=== PATIENT | female | born 1965 | race Caucasian/White ===

== ENCOUNTER 2021-06-11 15:22 | Inpatient (IN) ==
[2021-06-11] MEDS ORDERED: Albuterol/Ipratropium NEB.SOL (2.5/0.5 MG) 3 ML NEB.SOLN INH ONE (15:26)
[2021-06-11] MEDS ORDERED: Magnesium Sulfate 2 gm BAG 2 GM/50 ML BAG ONE (15:33)
[2021-06-11 15:49] LABS: Hematocrit 45 % (35-47); Hemoglobin 14.6 g/dL (12.0-16.0); Mean Corpuscular HGB Conc 33 g/dL (31-36); Mean Corpuscular Hemoglobin 31 pg (27-31); Mean Corpuscular Volume 95 fL (80-97); Mean Platelet Volume 7.4 fL (7.4-10.4); Platelet Count 397 10^3/uL (150-450); Red Blood Count 4.71 10^6 /uL (3.70-4.87); Red Cell Distribution Width 14 % (10-15); White Blood Count 17.3 10^3/uL (3.5-10.8)
[2021-06-11] MEDS ORDERED: Magnesium Sulfate 2 gm BAG 2 GM/50 ML BAG IVPB ONE (15:49)
[2021-06-11] MEDS ORDERED: Azithromycin 500 mg/250 ml NS 500 MG/250 ML BAG IVPB ONE (15:50)
[2021-06-11] MEDS ORDERED: cefTRIAXone 1 gm/50 mL NS BAG 1 GM/50 ML BAG IV ONE (15:50)
[2021-06-11 15:56] LABS: ABS Basophils 0.1 10^3/ul (0-0.2); ABS Eosinophils 0.2 10^3/ul (0-0.6); ABS Lymphocytes 2.3 10^3/ul (1.0-4.8); ABS Monocytes 2.2 10^3/ul (0-0.8); ABS Neutrophils 12.6 10^3/ul (1.5-7.7); Lymphocyte % 13.2 %
[2021-06-11 15:57] LABS: Albumin 4.6 g/dL (3.2-5.2); Albumin/Globulin Ratio 1.5 (1-3); Calcium 9.8 mg/dL (8.6-10.3); EGFR African American 142.9 (>60); EGFR Non-African American 118.1 (>60); Globulin 3.1 g/dL (2-4); Magnesium 2.3 mg/dL (1.9-2.7); Potassium 4.4 mmol/L (3.5-5.0); Total Bilirubin 0.4 mg/dL (0.2-1.0); Total Protein 7.7 g/dL (6.4-8.9)
[2021-06-11 15:58] LABS: Troponin I 0.01 ng/mL (<0.03)
[2021-06-11 15:59] LABS: PCO2 Arterial 96 mmHg (35-45); PO2 Arterial 289 mmHg (80-100)
[2021-06-11 16:08] LABS: Rapid COVID-19 Molecular Undetected (Undetected)
[2021-06-11] MEDS: Albuterol 2.5mg/3 ml (0.083%) NEB.SOLN INH SCH ×3 (16:33→16:47)
[2021-06-11] MEDS ORDERED: Morphine 4 MG/ML VIAL (1 ml) IV ONE (17:00)
[2021-06-11] MEDS ORDERED: Enoxaparin 40 MG/0.4 ML SYR SUBCUT SCH (18:00)
[2021-06-11] MEDS: methylPREDNISolone SOD 40 mg/ml 1 ml VIAL IV SCH (18:12)
[2021-06-11 18:37] LABS: PO2 Arterial 92 mmHg (80-100)
[2021-06-11 18:39] LABS: PCO2 Arterial 80 mmHg (35-45)
[2021-06-11] MEDS ORDERED: Albuterol/Ipratropium NEB.SOL (2.5/0.5 MG) 3 ML NEB.SOLN INH SCH ×2 (19:00→23:00)
[2021-06-11] MEDS: Pantoprazole VIAL 40 MG VIAL IV SCH (22:18)
[2021-06-12] MEDS: methylPREDNISolone SOD 40 mg/ml 1 ml VIAL IV SCH ×3 (02:43→19:59)
[2021-06-12 05:55] LABS: ABS Lymphocytes 0.5 10^3/ul (1.0-4.8); ABS Monocytes 0.4 10^3/ul (0-0.8); ABS Neutrophils 7.3 10^3/ul (1.5-7.7); Hematocrit 38 % (35-47); Hemoglobin 12.6 g/dL (12.0-16.0); Lymphocyte % 6.5 %; Mean Corpuscular HGB Conc 33 g/dL (31-36); Mean Corpuscular Hemoglobin 31 pg (27-31); Mean Corpuscular Volume 94 fL (80-97); Mean Platelet Volume 7.6 fL (7.4-10.4); Platelet Count 270 10^3/uL (150-450); Red Blood Count 4.05 10^6 /uL (3.70-4.87); Red Cell Distribution Width 14 % (10-15); White Blood Count 8.3 10^3/uL (3.5-10.8)
[2021-06-12 05:57] LABS: PCO2 Arterial 50 mmHg (35-45); PO2 Arterial 88 mmHg (80-100)
[2021-06-12 06:11] LABS: Calcium 9.3 mg/dL (8.6-10.3); EGFR African American 176.4 (>60); EGFR Non-African American 145.7 (>60); Magnesium 2.3 mg/dL (1.9-2.7); Phosphorus 2.8 mg/dL (2.5-5.0); Potassium 3.6 mmol/L (3.5-5.0)
[2021-06-12] MEDS ORDERED: KCL 20 MEQ/100 ML IVPREMIX 20 MEQ/100 ML BAG IV SCH (07:00)
[2021-06-12] MEDS: Albuterol/Ipratropium NEB.SOL (2.5/0.5 MG) 3 ML NEB.SOLN INH SCH ×2 (07:22→14:17)
[2021-06-12] MEDS ORDERED: Potassium Chlor 20 meq TAB.ER PO ONE (08:46)
[2021-06-12] MEDS: Labetalol IV 5 MG/ML 20 ml VIAL IV PUSH PRN ×2 (13:55→20:34)
[2021-06-12] MEDS: Ondansetron 4 mg VIAL 2 MG/ML 2 ml VIAL IV PRN (15:22)
[2021-06-12] MEDS ORDERED: Prochlorperazine 5 mg/ml 2 ml VIAL (10 mg) IV ONE (17:15)
[2021-06-12] MEDS: cefTRIAXone 1 gm/50 mL NS BAG 1 GM/50 ML BAG IVPB SCH (18:15)
[2021-06-12] MEDS: Enoxaparin 30 MG/0.3 ML SYR SUBCUT SCH (18:28)
[2021-06-12] MEDS: IPRATROPIUM INH SCH (18:28)
[2021-06-12] MEDS: Albuterol HFA INHALER 8 gm MDI INH SCH (18:29)
[2021-06-12] MEDS: Pantoprazole VIAL 40 MG VIAL IV SCH (19:59)
[2021-06-13] MEDS ORDERED: Labetalol IV 5 MG/ML 20 ml VIAL IV PUSH ONE (00:44)
[2021-06-13] MEDS: Albuterol HFA INHALER 8 gm MDI INH SCH ×2 (00:47→06:22)
[2021-06-13] MEDS: IPRATROPIUM INH SCH ×2 (00:48→06:22)
[2021-06-13] MEDS: Labetalol IV 5 MG/ML 20 ml VIAL IV PUSH PRN (03:40)
[2021-06-13 07:06] LABS: Hematocrit 35 % (35-47); Hemoglobin 11.8 g/dL (12.0-16.0); Mean Corpuscular HGB Conc 34 g/dL (31-36); Mean Corpuscular Hemoglobin 31 pg (27-31); Mean Corpuscular Volume 92 fL (80-97); Mean Platelet Volume 7.8 fL (7.4-10.4); Platelet Count 281 10^3/uL (150-450); Red Blood Count 3.78 10^6 /uL (3.70-4.87); Red Cell Distribution Width 14 % (10-15); White Blood Count 15.2 10^3/uL (3.5-10.8)
[2021-06-13 07:25] LABS: Calcium 8.8 mg/dL (8.6-10.3); Magnesium 1.9 mg/dL (1.9-2.7); Phosphorus 2.8 mg/dL (2.5-5.0); Potassium 2.9 mmol/L (3.5-5.0)
[2021-06-13] MEDS ORDERED: Magnesium Sulfate 2 gm BAG 2 GM/50 ML BAG IVPB ONE (07:30)
[2021-06-13] MEDS: methylPREDNISolone SOD 40 mg/ml 1 ml VIAL IV SCH ×2 (07:59→20:45)
[2021-06-13] MEDS ORDERED: Albuterol HFA INHALER 8 gm MDI INH ONE (08:11)
[2021-06-13] MEDS ORDERED: Albuterol/Ipratropium NEB.SOL (2.5/0.5 MG) 3 ML NEB.SOLN INH PRN (09:50)
[2021-06-13] MEDS: KCL 20 MEQ/100 ML IVPREMIX 20 MEQ/100 ML BAG IV SCH ×2 (10:43→20:10)
[2021-06-13] MEDS ORDERED: hydrALAZINE 20 mg/ml 1 ML Vial IV IV SLOW PU ONE (13:13)
[2021-06-13] MEDS ORDERED: Ipratropium HFA INHALER(NF) (ALTERNATIVE = NEBS) INH PRN (13:37)
[2021-06-13] MEDS: Potassium Chlor 20 meq TAB.ER PO SCH ×2 (13:56→20:45)
[2021-06-13] MEDS ORDERED: Levalbuterol 1.25MG/0.5ML NEB.SOL INH PRN (14:27)
[2021-06-13] MEDS: Levalbuterol 1.25MG/0.5ML NEB.SOL INH SCH ×2 (15:47→23:08)
[2021-06-13] MEDS: cefTRIAXone 1 gm/50 mL NS BAG 1 GM/50 ML BAG IVPB SCH (16:44)
[2021-06-13] MEDS: Enoxaparin 30 MG/0.3 ML SYR SUBCUT SCH (17:00)
[2021-06-13] MEDS: Pantoprazole VIAL 40 MG VIAL IV SCH (20:45)
[2021-06-14 06:24] LABS: ABS Lymphocytes 0.8 10^3/ul (1.0-4.8); ABS Monocytes 0.8 10^3/ul (0-0.8); ABS Neutrophils 12.1 10^3/ul (1.5-7.7); Hematocrit 42 % (35-47); Hemoglobin 13.9 g/dL (12.0-16.0); Lymphocyte % 5.9 %; Mean Corpuscular HGB Conc 33 g/dL (31-36); Mean Corpuscular Hemoglobin 31 pg (27-31); Mean Corpuscular Volume 93 fL (80-97); Mean Platelet Volume 7.6 fL (7.4-10.4); Platelet Count 332 10^3/uL (150-450); Red Cell Distribution Width 14 % (10-15); White Blood Count 13.7 10^3/uL (3.5-10.8)
[2021-06-14 06:35] LABS: Calcium 9.2 mg/dL (8.6-10.3); EGFR Non-African American 149.6 (>60); Phosphorus 2.5 mg/dL (2.5-5.0); Potassium 3.5 mmol/L (3.5-5.0)
[2021-06-14] MEDS: Levalbuterol 1.25MG/0.5ML NEB.SOL INH SCH ×2 (07:18→15:31)
[2021-06-14] MEDS: Potassium Chlor 20 meq TAB.ER PO SCH ×3 (08:41→21:34)
[2021-06-14] MEDS: cefTRIAXone 1 gm/50 mL NS BAG 1 GM/50 ML BAG IVPB SCH (17:40)
[2021-06-14] MEDS: Enoxaparin 30 MG/0.3 ML SYR SUBCUT SCH (18:26)
[2021-06-14] MEDS: Mometasone/Formoter 200/5 MDI INH SCH (22:24)
[2021-06-15] MEDS: Mometasone/Formoter 200/5 MDI INH SCH ×2 (08:19→20:41)
[2021-06-15] MEDS: SPIRIVA Respimat (tiotropium) 2.5 mcg/inh Inhaler INH SCH (08:19)
[2021-06-15] MEDS: Potassium Chlor 20 meq TAB.ER PO SCH ×3 (10:12→20:34)
[2021-06-15] MEDS: Enoxaparin 30 MG/0.3 ML SYR SUBCUT SCH (16:15)
[2021-06-15] MEDS: cefTRIAXone 1 gm/50 mL NS BAG 1 GM/50 ML BAG IVPB SCH (17:51)
[2021-06-15] MEDS: Ondansetron 4 mg VIAL 2 MG/ML 2 ml VIAL IV PRN (17:58)
[2021-06-16] MEDS: Potassium Chlor 20 meq TAB.ER PO SCH ×3 (07:33→19:58)
[2021-06-16] MEDS: SPIRIVA Respimat (tiotropium) 2.5 mcg/inh Inhaler INH SCH (07:44)
[2021-06-16] MEDS: Mometasone/Formoter 200/5 MDI INH SCH ×2 (07:45→19:40)
[2021-06-16 10:04] LABS: ABS Eosinophils 0.1 10^3/ul (0-0.6); ABS Lymphocytes 1.2 10^3/ul (1.0-4.8); ABS Monocytes 0.7 10^3/ul (0-0.8); ABS Neutrophils 12.6 10^3/ul (1.5-7.7); Eosinophil % 0.6 %; Hematocrit 39 % (35-47); Hemoglobin 13.3 g/dL (12.0-16.0); Lymphocyte % 7.9 %; Mean Corpuscular HGB Conc 34 g/dL (31-36); Mean Corpuscular Hemoglobin 31 pg (27-31); Mean Corpuscular Volume 92 fL (80-97); Mean Platelet Volume 7.6 fL (7.4-10.4); Platelet Count 310 10^3/uL (150-450); Red Blood Count 4.31 10^6 /uL (3.70-4.87); Red Cell Distribution Width 14 % (10-15); White Blood Count 14.6 10^3/uL (3.5-10.8)
[2021-06-16 10:26] LABS: EGFR African American 159.8 (>60); EGFR Non-African American 132.1 (>60); Potassium 3.7 mmol/L (3.5-5.0)
[2021-06-16] MEDS: Enoxaparin 30 MG/0.3 ML SYR SUBCUT SCH (16:51)
[2021-06-17 05:24] LABS: ABS Basophils 0.1 10^3/ul (0-0.2); ABS Eosinophils 0.2 10^3/ul (0-0.6); ABS Lymphocytes 2.2 10^3/ul (1.0-4.8); ABS Monocytes 1.3 10^3/ul (0-0.8); ABS Neutrophils 11.5 10^3/ul (1.5-7.7); Eosinophil % 1.5 %; Hematocrit 42 % (35-47); Hemoglobin 13.8 g/dL (12.0-16.0); Lymphocyte % 14.6 %; Mean Corpuscular HGB Conc 33 g/dL (31-36); Mean Corpuscular Hemoglobin 30 pg (27-31); Mean Corpuscular Volume 92 fL (80-97); Mean Platelet Volume 8.1 fL (7.4-10.4); Platelet Count 357 10^3/uL (150-450); Red Blood Count 4.55 10^6 /uL (3.70-4.87); Red Cell Distribution Width 14 % (10-15); White Blood Count 15.2 10^3/uL (3.5-10.8)
[2021-06-17] MEDS: Mometasone/Formoter 200/5 MDI INH SCH ×3 (07:20→20:54)
[2021-06-17] MEDS: SPIRIVA Respimat (tiotropium) 2.5 mcg/inh Inhaler INH SCH (07:20)
[2021-06-17] MEDS: Potassium Chlor 20 meq TAB.ER PO SCH ×3 (07:50→21:21)
[2021-06-17] MEDS: Enoxaparin 30 MG/0.3 ML SYR SUBCUT SCH (17:45)
[2021-06-18] MEDS: Mometasone/Formoter 200/5 MDI INH SCH ×2 (07:29→19:35)
[2021-06-18] MEDS: SPIRIVA Respimat (tiotropium) 2.5 mcg/inh Inhaler INH SCH (07:37)
[2021-06-18] MEDS: Potassium Chlor 20 meq TAB.ER PO SCH ×3 (07:52→20:28)
[2021-06-18] MEDS: Enoxaparin 30 MG/0.3 ML SYR SUBCUT SCH (17:49)
[2021-06-19] MEDS: Mometasone/Formoter 200/5 MDI INH SCH ×2 (08:24→19:50)
[2021-06-19] MEDS: SPIRIVA Respimat (tiotropium) 2.5 mcg/inh Inhaler INH SCH (08:25)
[2021-06-19] MEDS: Potassium Chlor 20 meq TAB.ER PO SCH ×2 (09:47→21:08)
[2021-06-19 14:32] LABS: Rapid COVID-19 Molecular Undetected (Undetected)
[2021-06-19] MEDS: Enoxaparin 30 MG/0.3 ML SYR SUBCUT SCH (21:07)
[2021-06-20] MEDS: SPIRIVA Respimat (tiotropium) 2.5 mcg/inh Inhaler INH SCH (07:53)
[2021-06-20] MEDS: Mometasone/Formoter 200/5 MDI INH SCH (07:54)
[2021-06-20] MEDS: Potassium Chlor 20 meq TAB.ER PO SCH (10:12)
[2021-06-20 11:55] VITALS: BP 181/93
== END 2021-06-20 14:25 | DRG 189 ==
LOC: ED 15:22 → SUATTDRO 17:22 → ICU 17:22 → MEDTELE 06-13 15:02
PROVIDERS: ADMIT Internal Medicine; ATTEND Internal Medicine

== ENCOUNTER 2021-12-05 23:24 | Observation (INO) ==
[2021-12-05] MEDS ORDERED: methylPREDNISolone 125 mg 2 ML VIAL IV ONE (23:41)
[2021-12-05] MEDS ORDERED: Albuterol/Ipratropium NEB.SOL (2.5/0.5 MG) 3 ML NEB.SOLN INH ONE ×3 (23:41)
[2021-12-05 23:58] LABS: ABS Lymphocytes 0.8 10^3/ul (1.0-4.8); ABS Monocytes 1.2 10^3/ul (0-0.8); Eosinophil % 0.2 %; Hematocrit 40 % (35-47); Hemoglobin 12.8 g/dL (12.0-16.0); Lymphocyte % 5.7 %; Mean Corpuscular HGB Conc 32 g/dL (31-36); Mean Corpuscular Hemoglobin 30 pg (27-31); Mean Corpuscular Volume 92 fL (80-97); Mean Platelet Volume 7.3 fL (7.4-10.4); Platelet Count 341 10^3/uL (150-450); Red Cell Distribution Width 16 % (10-15); White Blood Count 14.1 10^3/uL (3.5-10.8)
[2021-12-06 00:13] LABS: INR 0.93 (0.86-1.15)
[2021-12-06 00:28] LABS: Albumin 4.5 g/dL (3.2-5.2); Albumin/Globulin Ratio 1.7 (1-3); C Reactive Protein 26.25 mg/L (<8.01); Calcium 9.6 mg/dL (8.6-10.3); Globulin 2.6 g/dL (2-4); Magnesium 2.3 mg/dL (1.9-2.7); Potassium 4.8 mmol/L (3.5-5.0); Total Bilirubin 0.4 mg/dL (0.2-1.0); Total Protein 7.1 g/dL (6.4-8.9); eGFR CKD-EPI 109.3 (>60)
[2021-12-06 00:40] LABS: PCO2 Arterial 59 mmHg (35-45); PO2 Arterial 149 mmHg (80-100)
[2021-12-06] MEDS ORDERED: ACETAMINOPHEN 1 GM/100 ML IV ONE (00:54)
[2021-12-06 01:17] LABS: High Sensitivity Troponin 1 Hr 16 pg/mL (<15)
[2021-12-06] MEDS ORDERED: Albuterol 2.5mg/3 ml (0.083%) NEB.SOLN INH PRN (02:58)
[2021-12-06] MEDS ORDERED: cefTRIAXone 1 gm/50 mL D5W 1 GM/50 ML BAG IV ONE (03:15)
[2021-12-06] MEDS ORDERED: Senna TAB 8.6 mg TAB PO PRN (03:31)
[2021-12-06] MEDS ORDERED: Azithromycin 500 mg/250 mL NS IVPB ONE (04:00)
[2021-12-06] MEDS: Albuterol/Ipratropium NEB.SOL (2.5/0.5 MG) 3 ML NEB.SOLN INH SCH ×2 (04:15→08:25)
[2021-12-06] MEDS ORDERED: Heparin 5000 UNITS/ML 1 mL VIAL SUBCUT SCH (06:00)
[2021-12-06] MEDS: Morphine ORAL CONCENTRATE 5 MG/0.25 ML ORAL.SYRIN PO PRN ×2 (06:36→14:54)
[2021-12-06 06:56] LABS: ABS Lymphocytes 0.4 10^3/ul (1.0-4.8); ABS Monocytes 0.2 10^3/ul (0-0.8); ABS Neutrophils 13.6 10^3/ul (1.5-7.7); Hematocrit 36 % (35-47); Hemoglobin 11.7 g/dL (12.0-16.0); Lymphocyte % 2.7 %; Mean Corpuscular HGB Conc 33 g/dL (31-36); Mean Corpuscular Hemoglobin 30 pg (27-31); Mean Corpuscular Volume 93 fL (80-97); Mean Platelet Volume 7.4 fL (7.4-10.4); Platelet Count 281 10^3/uL (150-450); Red Blood Count 3.84 10^6 /uL (3.70-4.87); Red Cell Distribution Width 17 % (10-15); White Blood Count 14.2 10^3/uL (3.5-10.8)
[2021-12-06] MEDS ORDERED: Mometasone/Formoter 200/5 MDI INH SCH (07:00)
[2021-12-06 07:06] LABS: Activated Partial Thrombo Time 28.9 seconds (26.0-38.0); INR 0.95 (0.86-1.15)
[2021-12-06 07:38] LABS: Calcium 8.9 mg/dL (8.6-10.3); Potassium 4.8 mmol/L (3.5-5.0); eGFR CKD-EPI 113.1 (>60)
[2021-12-06] MEDS ORDERED: methylPREDNISolone SOD 40 mg/ml 1 ml VIAL IV SCH (08:00)
[2021-12-06] MEDS ORDERED: Budesonide/Formote 160/4.5(NF) MDI INH SCH (09:00)
[2021-12-06] MEDS ORDERED: Albuterol/Ipratropium NEB.SOL (2.5/0.5 MG) 3 ML NEB.SOLN INH PRN (11:00)
[2021-12-06 11:35] VITALS: BP 109/65
[2021-12-07] MEDS ORDERED: cefTRIAXone 1 gm/50 mL D5W 1 GM/50 ML BAG IV SCH (03:00)
[2021-12-07] MEDS ORDERED: Azithromycin 500 mg/250 ml NS 500 MG/250 ML BAG IVPB SCH (04:00)
== END 2021-12-06 15:05 ==
LOC: ED 23:24 → SUATTDRO 12-06 02:52 → EDHOLD 12-06 02:52 → INTOOBSV 12-06 02:52 → MEDTELE 12-06 06:04
PROVIDERS: ADMIT Internal Medicine; ATTEND Internal Medicine